=== PATIENT | female | born 1980 | race Caucasian/White ===

== ENCOUNTER 2019-06-02 17:30 | Inpatient (IN) | payer MEDICARE, OTHER ==
[2019-06-02] MEDS ORDERED: HEPARIN SODIUM,PORCINE 5,000 UNIT/ML 1 ML VIAL IV PRN (18:28)
[2019-06-02] MEDS ORDERED: ACETAMINOPHEN TAB 325 MG TAB PO STA (18:29)
[2019-06-02] MEDS ORDERED: HEPARIN SOD,PORK IN 0.45% NACL 25,000 UNIT in 0.45% NACL 1 250ML.BAG IV SCH (18:30)
--- NOTE | 2019-06-02 18:37 | ED ---
General Adult HPI <Tavo Sexton - Last Filed: 06/02/19 19:03> - General Source: patient, EMS, RN notes reviewed Mode of arrival: EMS Limitations: no limitations <Johan Francois - Last Filed: 06/02/19 21:00> - General Chief complaint: Recheck/Abnormal Lab/Rx Stated complaint: Abnormal labs Time Seen by Provider: 06/02/19 17:36 - History of Present Illness Initial comments: 38-year-old female with a past medical history of diabetes mellitus, developmental delay presents as a transfer from [place] for chest pain and elevated troponin. Patient started to have a sharp chest pain with pressure last night. Her father took her to the emergency department where she was found to have an elevated troponin of 0.63. Chest x-ray at that time showed no significant change from prior. Stable prominence of the cardiomediastinal silhouette and interstitial markings with mild peribronchial cuffing. May be seen in the setting of mild pulmonary vascular congestion versus infectious inflammatory bronchial wall thickening. Patient still does admit to mild pain. She is well-appearing. She is talkative and pleasant. She denies shortness of breath. She does admit to mild cough. Patient has no other complaints at this time including shortness of breath, abdominal pain, nausea or vomiting, headac he, or visual changes. (Johan Francois) - Related Data Allergies Allergy/AdvReac Type Severity Reaction Status Date / Time cephalexin [From Keflex] Allergy Unknown Verified 06/02/19 17:41 Penicillins Allergy Unknown Verified 06/02/19 17:41 Childhood Review of Systems ROS Other: All systems not noted in ROS Statement are negative. <Tavo Sexton - Last Filed: 06/02/19 19:03> ROS Other: All systems not noted in ROS Statement are negative. <Johan Francois - Last Filed: 06/02/19 21:00> ROS Statement: Those systems with pertinent positive or pertinent negative responses have been documented in the HPI. Past Medical History Past Medical History: Diabetes Mellitus Additional Past Medical History / Comment(s): developmental delay Past Surgical History: Cholecystectomy, Orthopedic Surgery, Uterine Ablation Additional Past Surgical History / Comment(s): right knee Past Psychological History: Depression <Johan Francois - Last Filed: 06/02/19 21:00> General Exam Limitations: no limitations General appearance: alert, in no apparent distress Head exam: Present: atraumatic, normocephalic, normal inspection Eye exam: Present: normal appearance, PERRL, EOMI. Absent: scleral icterus, conjunctival injection, periorbital swelling ENT exam: Present: normal exam, mucous membranes moist Neck exam: Present: normal inspection, full ROM. Absent: tenderness, meningismus, lymphadenopathy Respiratory exam: Present: normal lung sounds bilaterally. Absent: respiratory distress, wheezes, rales, rhonchi, stridor Cardiovascular Exam: Present: regular rate, normal rhythm, normal heart sounds. Absent: systolic murmur, diastolic murmur, rubs, gallop, clicks GI/Abdominal exam: Present: soft, normal bowel sounds. Absent: distended, tenderness, guarding, rebound, rigid Neurological exam: Present: alert <Johan Francois - Last Filed: 06/02/19 21:00> Course <Tavo Sexton - Last Filed: 06/02/19 19:03> Vital Signs 06/02/19 06/02/19 06/02/19 17:32 18:22 19:32 Temperature 98.9 F Pulse Rate 109 H Pulse Rate [ Pulse Oximetery ] Respiratory 16 Rate Blood Pressure 181/131 150/101 152/94 Blood Pressure [Left Arm] O2 Sat by Pulse 97 Oximetry 06/02/19 19:48 Temperature 98.3 F Pulse Rate Pulse Rate [ 103 H Pulse Oximetery ] Respiratory 18 Rate Blood Pressure Blood Pressure 194/93 [Left Arm] O2 Sat by Pulse 92 L Oximetry - Reevaluation(s) Reevaluation #1: 06/02/19 19:03 PA supervision: I personally say the patient and reviewed the materials presented from [facility]. The EKG is not present. Patient apparently complains some chest pain. Did have a was elevated 0.63. EKG was done at this facility which showed no evidence of acute ST-T wave changes. I did discuss the case with Dr. Majano I did also discuss case with the patient's mother was present patient be admitted with cardiology consultation and inpatient workup. (Tavo Sexton) EKG Findings - EKG Comments: EKG Findings:: EKG shows a normal sinus rhythm, ventricular rate 100, AR int 148, QTC 456 <Johan Francois - Last Filed: 06/02/19 21:00> Medical Decision Making <Johan Francois - Last Filed: 06/02/19 21:00> - Medical Decision Making 38-year-old female presents to the emergency department as a transfer for chest pain. Patient was found have a troponin elevated at 0.63. At that time she did have a chest x-ray which was negative for any acute significant change. CTA of the chest was performed which was significantly limited due to motion artifact and poor bolus timing but there was no obvious ulnar embolism visualized. Apparently at previous emergency department patient did have improvement of chest pain following aspirin and nitro. Heparin bolus was given and infusion was initiated. This was continued after patient arrived in our emergency department. Given possible vascular congestion on chest x-ray BNP was ordered which was normal. Patient is noted to be coughing and likely does have a component of upper respiratory infection or bronchitis. However given elevated troponin patient was admitted here for cardiology consultation and returning troponin. Repeat troponin obtained approximately 7 hours after her initial troponin was actually negative. Patient was admitted. I did order an ultrasound of the left lower leg as there is some concern for possible DVT and it was apparently agreed upon that this would be performed when patient arrived to our emergency department according to the note. Unfortunately I did not receive the note until patient had been here after about 2 hours because it was not sent with patient. Left leg ultrasound negative for DVT. (Johan Francois) - Lab Data Lab Results 06/02/19 06/02/19 06/02/19 Range/Units 18:35 18:35 20:29 POC Glucose (mg/dL) 149 H (75-99) mg/dL POC Glu Education Reviewer ID Anton Mann Troponin I <0.012 (0.000-0.034) ng/mL NT-Pro-B Natriuret Pep 136 pg/mL Disposition <Tavo Sexton - Last Filed: 06/02/19 19:03> Is patient prescribed a controlled substance at d/c from ED?: No Time of Disposition: 18:59 <Johan Francois - Last Filed: 06/02/19 21:00> Clinical Impression: Elevated troponin, Chest pain Disposition: ADMITTED IP TO THIS HOSP Condition: Good Referrals: Demi Breen MD [Primary Care Provider] - 1-2 days
[2019-06-02] MEDS ORDERED: ONDANSETRON 4 MG/2 ML VIAL IVP STA (18:40)
[2019-06-02] MEDS ORDERED: NITROGLYCERIN SL TABS 0.4 MG TAB SUBLINGUAL PRN (18:47)
--- NOTE | 2019-06-02 20:08 | US ---
EXAMINATION TYPE: US venous doppler duplex LE LT DATE OF EXAM: 06/02/2019 7:37 PM COMPARISON: NONE CLINICAL HISTORY: r/o dvt. Left leg swelling, chest pain, patient on blood thinners. SIDE PERFORMED: Left TECHNIQUE: The lower extremity deep venous system is examined utilizing real time linear array sonog igor with graded compression, doppler sonography and color-flow sonography. VESSELS IMAGED: External Iliac Vein (EIV) Common Femoral Vein Deep Femoral Vein Greater Saphenous Vein * Femoral Vein Popliteal Vein Small Saphenous Vein * Proximal Calf Veins (* superficial vessels) Left Leg: Appears negative for DVT IMPRESSION: No sign of deep vein thrombosis in the left leg.
[2019-06-02 20:31] LABS: Glucose,Whole Blood 149 mg/dL (75-99)
--- NOTE | 2019-06-02 22:56 | P.HPIM ---
History of Present Illness H&P Date: 06/02/19 Chief Complaint: Chest. History of present complaint: This is a very pleasant 38-year-old patient of Dr. Amee Breen with some mental retardation. Also history of which is stable diabetes, hypertension, GERD and sinus ALLERGIES. Patient's mother the bedside. Patient's had recurrent UTIs. Patient presented with pain in the middle of the chest felt like a pressure on and off most of the night. Decided to go down to [facility]. Patient with small troponin leak. Was transferred down here for further workup. She does describe like paying reflux symptoms. Reflux has been bothering her more recently. Denied any fever and chills. No chest injury. Currently rather cheerful should be sitting down. Review of systems: GEN.: None EYES: None HEENT: None NECK: None RESPIRATORY: None CARDIOVASCULAR: As above GASTROINTESTINAL: As above GENITOURINARY: None MUSCULOSKELETAL: None LYMPHATICS: None HEMATOLOGICAL: None PSYCHIATRY: None NEUROLOGICAL: None Past medical history to include: Developmental delay, diabetes, hypertension, GERD, sinus ALLERGIES, kidney stones Social history: Does not smoke or drink alcohol. Used to appearance. Physical examination: VITAL SIGNS: 98.9, 109, 16, blood pressure 150s over 101, 97% on room air GENERAL: [BMI 32.7, sitting up, awake comfortable. EYES: Pupils equal. Conjunctiva normal. HEENT: External appearance of nose and ears normal, oral cavity grossly normal. NECK: JVD not raised; masses not palpable. HEART: First and second heart sounds are normal; no edema. LUNGS: Respiratory rate normal; clear to auscultation. ABDOMEN: Soft, mild epigastric tenderness, no guarding or rigidity, liver spleen not palpable, no masses palpable. PSYCH: Alert and oriented x3; mood and affect normal. NEUROLOGICAL: Cranial nerves grossly intact; no facial asymmetry, power and sensation grossly intact. LYMPHATICS: No lymph nodes palpable in the axilla and neck Investigations: Does blood work from the outside hospital. Glucose 149 troponin I less than 0.012 proBNP 136 Assessment: -Central chest pain lasting on and off all night felt like heartburn possibly esophageal spasm -Uncontrolled GERD -Obesity BMI 32.7 -Developmental delay Plan: We will look into his labs from the hospital. Order 2-D echocardiogram. Serial cardiac enzymes. Add PPI. Care was discussed with the patient's mother the bedside question were answered. Past Medical History Past Medical History: Diabetes Mellitus Additional Past Medical History / Comment(s): developmental delay History of Any Multi-Drug Resistant Organisms: None Reported Past Surgical History: Cholecystectomy, Orthopedic Surgery, Uterine Ablation Additional Past Surgical History / Comment(s): right knee Past Psychological History: Depression - Past Family History Mother Additional Family Medical History / Comment(s): Parkinsons. Father Additional Family Medical History / Comment(s): Heart disease Medications and Allergies Allergies Allergy/AdvReac Type Severity Reaction Status Date / Time cephalexin [From Keflex] Allergy Unknown Verified 06/02/19 17:41 Penicillins Allergy Unknown Verified 06/02/19 17:41 Childhood Physical Exam Vitals: Vital Signs Temp Pulse Pulse Resp BP BP Pulse Ox 06/02/19 19:48 98.3 F 103 H 18 194/93 92 L 06/02/19 19:32 152/94 06/02/19 18:22 150/101 06/02/19 17:32 98.9 F 109 H 16 181/131 97 Intake and Output 06/02/19 06/02/19 06/02/19 06:59 14:59 22:59 Other: Weight 73.482 kg Results Labs: Abnormal Lab Results - Last 24 Hours (Table) 06/02/19 Range/Units 20:29 POC Glucose (mg/dL) 149 H (75-99) mg/dL
[2019-06-03] MEDS: FAMOTIDINE 20 MG TAB PO SCH ×3 (01:04→13:12)
[2019-06-03] MEDS: CALCIUM CARBONATE LIQUID 500 MG/5 ML CUP PO SCH ×3 (01:05→13:19)
[2019-06-03] MEDS ORDERED: ACETAMINOPHEN TAB 325 MG TAB PO PRN (01:52)
[2019-06-03 06:05] LABS: Glucose,Whole Blood 122 mg/dL (75-99)
[2019-06-03 06:39] LABS: Basophils % (A) 0 %; Eosinophils # (A) 0.2 k/uL (0-0.7); Eosinophils % (A) 1 %; HCT 40.9 % (34.0-46.0); HGB 12.9 gm/dL (11.4-16.0); Lymphocytes % (A) 20 %; MCH 27.4 pg (25.0-35.0); MCHC 31.5 g/dL (31.0-37.0); MCV 86.9 fL (80.0-100.0); Mean Platelet Volume 7.9; Monocytes # (A) 0.6 k/uL (0-1.0); Monocytes % (A) 4 %; Neutrophils # (A) 11.1 k/uL (1.3-7.7); Neutrophils % (A) 74 %; Platelet Count 322 k/uL (150-450); RBC 4.71 m/uL (3.80-5.40); RDW 14.2 % (11.5-15.5); WBC 15.1 k/uL (3.8-10.6)
[2019-06-03 06:52] LABS: Cholesterol 175 mg/dL (<200); HDL Cholesterol 35 mg/dL (40-60); LDL Cholesterol,Calculated 87 mg/dL (0-99); Triglycerides 267 mg/dL (<150)
[2019-06-03] MEDS ORDERED: ASPIRIN 325 MG TAB PO SCH (09:00)
[2019-06-03] MEDS ORDERED: AMINOPHYLLINE 500 MG/20 ML VIAL IV PRN (09:13)
[2019-06-03] MEDS ORDERED: CAFFEINE CITRATE 60 MG/3 ML VIAL IV PRN (09:13)
[2019-06-03] MEDS ORDERED: REGADENOSON 0.4 MG/5 ML SYRINGE IV ONE (09:13)
[2019-06-03] MEDS ORDERED: SODIUM CHLORIDE 0.9% IV ONE (09:30)
[2019-06-03] MEDS ORDERED: METOPROLOL SUCCINATE (ER) 50 MG TAB.ER.24H PO SCH (09:30)
[2019-06-03] MEDS ORDERED: DIPYRIDAMOLE IV ONE (09:30)
[2019-06-03 09:45] VITALS: RESP 18; TEMP 98.8
--- NOTE | 2019-06-03 10:00 | CONS ---
CONSULTATION CHIEF COMPLAINT: Chest pain. Lily is a 38-year-old lady who is developmentally challenged and lives with her mom and dad presented to the hospital complaining of chest pain. She describes it as a pressure-like sensation in the precordial area on and off that started on Monday night and has gradually subsided subsequently. By the time she came to the ER, she was already chest pain free. She apparently had an elevated troponin at the other emergency room, but all the troponins that we have gotten are all within normal limits. An EKG shows sinus rhythm without significant ST-T wave changes. She had a venous duplex of legs that is negative for DVT. The patient at the time of my evaluation, appears comfortable at rest and is free of cardiac symptoms. I advised the patient to undergo a stress test for further evaluation. The patient has history of diabetes, hypertension, GERD, and recurrent UTI and sinusitis. MEDICATIONS: I do not have a list of her medications. FAMILY HISTORY: Significant for coronary artery disease in her father. SOCIAL HISTORY: Negative for current smoking, EtOH abuse or drug abuse. REVIEW OF SYSTEMS: HEENT is unremarkable. CARDIAC: As described above. RESPIRATORY: As described above. GI: Negative. GENITOURINARY: Negative. ALLERGY/IMMUNOLOGY: Negative. SKIN: Negative. MUSCULOSKELETAL: Significant for arthritis. PSYCHOSOCIAL: Negative. DERM: Negative. CONSTITUTIONAL: Negative. ONCOLOGICAL: Negative. REAL ESTATE UTILIZATION OFFICER: Negative. Rest of the system review is not relevant. PHYSICAL EXAMINATION: On exam, she appears comfortable at rest. Vital signs are stable. There is no jugular venous distention. Carotid upstroke is normal. There is no bruit. Chest exam reveals good air entry bilaterally. Heart exam reveals first and second heart sounds. No gallop. No murmur. No rub. Abdomen is soft, nontender. Exam of extremities did not reveal any edema. Peripheral pulses are felt. REAL ESTATE UTILIZATION OFFICER exam did not reveal focal neurological deficits. ASSESSMENT: 1. Precordial chest pain. 2. Diabetes. 3. Hypertension. PLAN: I am going to start the patient on Toprol-XL 50 mg daily for optimal blood pressure control. Schedule her for a stress test. If she has ischemia, I will do a cardiac catheterization. I will also obtain a 2D echo. MMODL / IJN: [id number] /
--- NOTE | 2019-06-03 11:08 | ECHOF ---
Referral Reason:trop MEASUREMENTS -------- HEIGHT: 149.9 cm WEIGHT: 73.5 kg BP: 156/70 RVIDd: 2.5 cm (< 3.3) IVSd: 1.2 cm (0.6 - 1.1) LVIDd: 4.2 cm (3.9 - 5.3) LVPWd: 1.3 cm (0.6 - 1.1) IVSs: 1.7 cm LVIDs: 2.9 cm LVPWs: 1.8 cm LA Diam: 3.2 cm (2.7 - 3.8) Ao Diam: 3.1 cm (2.0 - 3.7) MV EXCURSION: 23.254 mm (> 18.000) MV EF SLOPE: 144 mm/s (70 - 150) EPSS: 0.9 cm MV E Ariel: 0.88 m/s MV DecT: 119 ms MV A Ariel: 0.48 m/s MV E/A Ratio: 1.82 FINDINGS -------- Sinus rhythm. This was a technically difficult study with suboptimal views. The left ventricular size is normal. There is mild concentric left ventricular hypertrophy. Overa ll left ventricular systolic function is normal with, an EF between 55 - 60 %. The right ventricle is normal in size. Normal LA size by volume 22+/-6 ml/m2. The right atrium is normal in size. Lumason used The aortic valve is trileaflet and appears structurally normal. The mitral valve is normal. The tricuspid valve appears structurally normal. The pulmonic valve was not well visualized. The aortic root size is normal. IVC Not well visulized. There is no pericardial effusion. CONCLUSIONS -------- 1. Sinus rhythm. 2. This was a technically difficult study with suboptimal views. 3. The left ventricular size is normal. 4. There is mild concentric left ventricular hypertrophy. 5. Overall left ventricular systolic function is normal with, an EF between 55 - 60 %. 6. The right ventricle is normal in size. 7. Normal LA size by volume 22+/-6 ml/m2. 8. The right atrium is normal in size. 9. Lumason used 10. The aortic valve is trileaflet and appears structurally normal. 11. The mitral valve is normal. 12. The tricuspid valve appears structurally normal. 13. The pulmonic valve was not well visualized. 14. The aortic root size is normal. 15. IVC Not well visulized. 16. There is no pericardial effusion. REFRIGERATION SERVICE INSPECTOR: Alexa Joshi RDCS
[2019-06-03] MEDS ORDERED: AMINOPHYLLINE 500 MG/20 ML VIAL IV ONE (12:15)
--- NOTE | 2019-06-03 13:11 | NM ---
EXAMINATION TYPE: NM stress persantine cardiolit DATE OF EXAM: 06/03/2019 COMPARISON: NONE HISTORY: Chest pain TECHNIQUE: After the intravenous administration of 10.69 mCi Tc 99m Sestamibi - Cardiolite resting S PECT images acquired 90 minutes post injection. The patient received 41 mg Persantine, 25.9 mCi Tc 99m Sestamibi - Stress images obtained 45 minutes post injection FINDINGS: Review of stress and rest SPECT images demonstrates mild decreased radiopharmaceutical along the ante rior wall of left ventricle on stress as compared to rest images. Gated analysis shows normal wall m otion with an estimated left ventricular ejection fraction of 64 %. IMPRESSION: Pharmacologically induced left ventricular myocardial ischemia
[2019-06-03 13:14] LABS: Glucose,Whole Blood 105 mg/dL (75-99)
--- NOTE | 2019-06-03 13:15 | EST ---
EXERCISE STRESS AGE: 38 SEX: Female HT: 4'11" WT: 160 pounds PROTOCOL: Persantine Cardiolite STAGE: DURATION OF EXERCISE: HEART RATE REST: 103 BLOOD PRESSURE REST: 169/110 MAXIMUM HEART RATE ACHIEVED: 122 MAXIMUM BLOOD PRESSURE: 164/97 85% MPHR: 156 100% MPHR: 183 METS: INDICATIONS: Chest pain. CLINICAL INFORMATION: STRESS DATA: Heart rate 103, pressure is 169/110 mmHg. Baseline EKG showed sinus rhythm. The patient was given a total of 41 mg of Persantine over 15 seconds per protocol. Max heart rate was 122 beats per minute and maximum blood pressure was 164/97 mmHg. Clinically, the patient did not have no symptoms and the EKG did not show any significant ST or T-wave abnormalities concerning for ischemia. CONCLUSION: 1. Nondiagnostic electrocardiogram stress testing in response to Persantine. 2. Please follow up on the Cardiolite portion on separate report from Radiology Department. MMODL / IJN: [id number] /
[2019-06-03 13:28] VITALS: BP 143/94; PULSE 105
[2019-06-03] MEDS ORDERED: ATORVASTATIN 80 MG TAB PO STA (13:48)
[2019-06-03] MEDS ORDERED: SODIUM CHLORIDE 0.9% 1,000 ML in EMPTY BAG 1 BAG IV ONE (13:48)
[2019-06-03] MEDS ORDERED: ALPRAZolam 0.25 MG TAB PO PRN (13:48)
[2019-06-03] MEDS ORDERED: ALPRAZolam 0.5 MG TAB PO PRN (13:48)
[2019-06-03] MEDS ORDERED: NITROGLYCERIN SL TABS 0.4 MG TAB SUBLINGUAL PRN (13:48)
[2019-06-03] MEDS ORDERED: ASPIRIN 325 MG TAB PO STA (13:48)
--- NOTE | 2019-06-03 14:20 | P.PN ---
Progress Note - Text Progress Note Date: 06/03/19 Persantine Cardiolite stress test was performed today, it showed a mild decrease of radiopharmaceutical uptake along the anterior wall as compared with rest images. I did have a discussion with the patient and her mom who were quite hesitant at undergoing cardiac catheterization. I did then speak with Dr. Noel regarding their decision, and patient will be treated with maximum medical therapy. She does live in the [facility], her father sees Dr. Garza and they're requesting if she can follow-up with him in that office as well. We will put the patient on a baby aspirin daily, Lipitor, metoprolol. DNP note has been reviewed, I agree with a documented findings and plan of care. Patient was seen and examined.
--- NOTE | 2019-06-03 22:26 | P.DS ---
Providers Date of admission: 06/02/19 19:02 Expected date of discharge: 06/03/19 Attending physician: Amor Majano Consults: 06/02/19 18:47 Consult Physician Routine Consulting Provider: [facility] Consult Reason/Comments: CP, elevated troponin Do you want consulting provider notified?: Yes Primary care physician: Demi Breen [facility] Course: Chief Complaint: Chest. History of present complaint: This is a very pleasant 38-year-old patient of Dr. Amee Breen with some mental retardation. Also history of which is stable diabetes, hypertension, GERD and sinus ALLERGIES. Patient's mother the bedside. Patient's had recurrent UTIs. Patient presented with pain in the middle of the chest felt like a pressure on and off most of the night. Decided to go down to [facility]. Patient with small troponin leak. Was transferred down here for further workup. She does describe like paying reflux symptoms. Reflux has been bothering her more recently. Denied any fever and chills. No chest injury. Currently rather cheerful should be sitting down. Patient was seen by cardiology. He ordered a nuclear stress test. It came back positive. The decided to manage the patient medically. Dose of omeprazole was increased. Care was discussed with the patient and mother the bedside. Questions were answered. Consultation: Dr. Linda Arango from cardiology Physical examination: VITAL SIGNS: 98.8, 106, 18, blood pressure 134/81, 94% on room air GENERAL: [BMI 32.7, sitting up, awake comfortable. EYES: Pupils equal. Conjunctiva normal. HEENT: External appearance of nose and ears normal, oral cavity grossly normal. NECK: JVD not raised; masses not palpable. HEART: First and second heart sounds are normal; no edema. LUNGS: Respiratory rate normal; clear to auscultation. ABDOMEN: Soft, mild epigastric tenderness, no guarding or rigidity, liver spleen not palpable, no masses palpable. PSYCH: Alert and oriented x3; mood and affect normal. Investigations: Hemoglobin 12.9 LDL 87 Persantine stress test-showing some reversibility 2-D echo-EF 55-60%, no wall motion abnormality Does blood work from the outside hospital. Glucose 149 troponin I less than 0.012 proBNP 136 Assessment: -Possible angina, with a positive nuclear stress test -Uncontrolled GERD -Obesity BMI 32.7 -Developmental delay Disposition: Home Patient Condition at Discharge: Stable Plan - Discharge Summary New Discharge Prescriptions: New Aspirin 81 mg PO DAILY #30 tab Atorvastatin [Lipitor] 40 mg PO HS #30 tablet Metoprolol Succinate (ER) [Toprol Xl] 50 mg PO DAILY #30 tab Continue Ascorbic Acid [Vitamin C] 500 mg PO DAILY Multivitamins, Thera [Multivitamin (formulary)] 1 tab PO DAILY Fexofenadine HCl [Reina Allergy] 180 mg PO DAILY@1600 Trimethoprim 100 mg PO W/BRKFST Pioglitazone [Actos] 30 mg PO DAILY glipiZIDE XL [Glucotrol XL] 5 mg PO W/BRKFST Calcium Polycarbophil [Fibercon] 1,300 mg PO HS Fenofibrate 54 mg PO DAILY Escitalopram [Lexapro] 5 mg PO DAILY Levothyroxine Sodium [Synthroid] 50 mcg PO DAILY Changed Omeprazole Magnesium [PriLOSEC OTC] 20 mg PO BID #60 tab Discontinued Potassium Chloride ER [K-Dur 10] 10 meq PO W/BRKFST Metoprolol Tartrate [Lopressor] 12.5 mg PO BID Hydrochlorothiazide 25 mg PO DAILY Discharge Medication List Ascorbic Acid [Vitamin C] 500 mg PO DAILY 06/03/19 [History] Aspirin 81 mg PO DAILY #30 tab 06/03/19 [Rx] Atorvastatin [Lipitor] 40 mg PO HS #30 tablet 06/03/19 [Rx] Calcium Polycarbophil [Fibercon] 1,300 mg PO HS 06/03/19 [History] Escitalopram [Lexapro] 5 mg PO DAILY 06/03/19 [History] Fenofibrate 54 mg PO DAILY 06/03/19 [History] Fexofenadine HCl [Reina Allergy] 180 mg PO DAILY@1600 06/03/19 [History] Levothyroxine Sodium [Synthroid] 50 mcg PO DAILY 06/03/19 [History] Metoprolol Succinate (ER) [Toprol Xl] 50 mg PO DAILY #30 tab 06/03/19 [Rx] Multivitamins, Thera [Multivitamin (formulary)] 1 tab PO DAILY 06/03/19 [History] Omeprazole Magnesium [PriLOSEC OTC] 20 mg PO BID #60 tab 06/03/19 [Rx] Pioglitazone [Actos] 30 mg PO DAILY 06/03/19 [History] Trimethoprim 100 mg PO W/BRKFST 06/03/19 [History] glipiZIDE XL [Glucotrol XL] 5 mg PO W/BRKFST 06/03/19 [History] Follow up Appointment(s)/Referral(s): Julio César Booker MD [STAFF PHYSICIAN] - 06/20/19 1:45 pm ([place] location) Demi Breen MD [Primary Care Provider] - 1 Week Dirk Briones MD [STAFF PHYSICIAN] - 07/10/19 1:00 pm Patient Instructions/Handouts: Chest Pain (DC) Discharge Disposition: HOME SELF-CARE
[2019-06-04] MEDS ORDERED: ATORVASTATIN 40 MG TAB PO SCH (09:00)
[2019-06-04] MEDS ORDERED: ASPIRIN 325 MG TAB PO SCH (09:00)
== END 2019-06-03 17:25 | disposition home or self-care (01) | DRG 311 ==
LOC: EC 17:30 → 3SCARD 19:02
PROVIDERS: ADMIT Hospitalist; ATTEND Hospitalist
DX: I20.9 Angina pectoris, unspecified (principal); E11.9 Type 2 diabetes mellitus without complications; E66.9 Obesity, unspecified; F32.9 Major depressive disorder, single episode, unspecified; F79 Unspecified intellectual disabilities; I10 Essential (primary) hypertension; J40 Bronchitis, not specified as acute or chronic; J06.9 Acute upper respiratory infection, unspecified; K21.9 Gastro-esophageal reflux disease without esophagitis; R62.50 Unspecified lack of expected normal physiological development in childhood; R77.8 Other specified abnormalities of plasma proteins; J30.2 Other seasonal allergic rhinitis; M19.90 Unspecified osteoarthritis, unspecified site; Z68.32 Body mass index [BMI] 32.0-32.9, adult; Z87.440 Personal history of urinary (tract) infections; Z88.1 Allergy status to other antibiotic agents; Z88.0 Allergy status to penicillin; Z90.49 Acquired absence of other specified parts of digestive tract; Z87.442 Personal history of urinary calculi; Z82.0 Family history of epilepsy and other diseases of the nervous system; Z82.49 Family history of ischemic heart disease and other diseases of the circulatory system
CPT/HCPCS: 36415; 78452; 80061; 83880; 84484; 85025; 85730; 93005; 93017; 93306; 96365; 96366; 96375; 99285